=== PATIENT | female | born 2005 ===

== ENCOUNTER 2025-01-29 17:52 | Emergency (ER) | payer OTHER, SELFPAY ==
[2025-01-29 18:12] VITALS: BP 113/74; PULSE 90; RESP 18; TEMP 36.7; O2SAT 99; BMI 45.7
--- NOTE | 2025-01-29 18:15 | ED_ITS ---
HPI - General Adult General Chief complaint: General Medical Stated complaint: covid testing Related Data Allergies Allergy/AdvReac Type Severity Reaction Status Date / Time egg AdvReac Stomach Verified 01/29/25 18:17 Upset tomato AdvReac Itching Verified 01/29/25 18:17 PMFSH Social History Social History Advance Directives: No Advance Directives Information Provided: No Physical Exam ED Vital Signs: Vital Signs - 24 hr 01/29/25 18:12 Temperature 98.1 F Pulse Rate 90 Respiratory Rate 18 Blood Pressure 113/74 Pulse Oximetry 99 Oxygen Delivery Method Room Air BMI result Body Mass Index 45.7 Course Course Course Narrative: This is a Rapid Medical Examination (RME) performed by Josh Juarez PA-C in triage. Full HPI, ROS, assessment and treatment plan per primary provider in the Main ED. Hx: 19 yo F here requesting covid testing. patient reports working at [employer], states someone at work tested positive for covid and they want everyone tested. reports nasal congestion. no other symptoms. Plan: covid swabs Reevaluation(s) Reevaluation #1: Patient left the emergency department before myself or any of the other clinicians could review or explain physical exam findings, test results, need or lack there of for additional testing, treatment options, or a treatment plan. Discharge Plan Discharge Clinical Impression: COVID-19 virus test result unknown Patient Disposition: Left W/O Completing Treatment Discharge Date/Time: 01/29/25 21:06
--- NOTE | 2025-01-29 20:15 | MHC.EDTECH ---
[email or web address]
--- OUTSIDE RECORDS SUMMARY | 2025-01-29 21:07 | XMS_ITS | Clinical Summary ---
Author Organization [facility] Address [address] [place] [address] Care Team Providers Care Business Continuity Director Name Role Phone Pina Ivory MD Primary Care Provider Source Comments PLEASE NOTE, if this patient is a minor, it may be UNLAWFUL to discuss sensitive information that is contained in these records (such as FAMILY PLANNING, MENTAL HEALTH or SUBSTANCE ABUSE) with the minor patient's parent or other person without the patient's specific authorization.[facility] Allergies No known active allergies Medications melatonin 5 mg capsuleIndication s:Sleep disturbance Take 5 mg by mouth nightly at bedtime as needed for sleep. 30 Cap 6 01/17/20 13 Active polyethylene glycol (GLYCOLAX, MIRALAX) 17 gram/dose powder DISSOLVE 17 GRAMS IN WATER AND DRINK ONCE DAILY 527 g 0 01/26/20 14 Active dextroamphetamine -amphetamine (ADDERALL XR) 20 mg 24 hr capsuleIndication s:ADHD (attention deficit hyperactivity disorder) Take 1 capsule by mouth every morning. Do not crush or chew. 30 capsule 0 02/04/20 14 Active omeprazole (PRILOSEC) [address] capsule GIVE LEIRA 1 CAPSULE BY MOUTH EVERY MORNING BEFORE BREAKFAST. DO NOT CRUSH OR CHEW 90 Cap 0 06/23/19 15 Active polyethylene glycol (GLYCOLAX, MIRALAX) 17 gram/dose powder MIX 17 GRAMS INTO 8 OUNCES OF JUICE ONCE A DAY NEEDED FOR CONSTIPATION 527 g 4 01/23/20 15 Active Active Problems Problem Noted Date Diagnosed Date Asthma in pediatric patient ([facility]) 10/08/2013 Overview (10/08/2013): Sees [employer] [facility]. Chronic headaches 03/19/2013 Overview (03/19/2013): Hx of chronic headaches. Old records sent for; followed by Neurologist in [place], [place]; Abnormality on head MRI, per Mother. ADHD (attention deficit hyperactivity disorder) 12/02/2012 Obesity 12/02/2012 Hx: UTI (urinary tract infection) 12/02/2012 Abdominal pain 12/02/2012 Immunizations Immunization Administration Dates Next Due DTAP (DAPTACEL),5 PERTUSSIS ANTIGENS ,06/27/2005,2004,2004,2004 HEP B, PED/ADOL ([id number]/RECOMBIVAX-PEDS) 2004,2004,2004 Hep A, Ped/adol, 2 Dose 10/08/2013,08/28/2012 Hib (PRP-T) 2004,2004,2004 INFLUENZA, SEASONAL, INJECTA BLE, PRESERVATIVE FREE 07/05/2013 IPV (IPOL) 06/27/2005, 5,2004,2003 MMR (MMR II/Priorix) 03/28/2008,03/28/2005 PNEUMOCOCCAL CONJUGATE PCV 7 06/27/2005, 2004,2004,2003 Varicella (Varivax), Live Vaccine 03/01/2008, Social History Tobacco Use Types Packs/Day Years Used Date Smoking Tobacco: Never Smokeless Tobacco: Never Alcohol Use Standard Drinks/Week Comments No 0 (1 standard drink = 0.6 oz pur e alcohol) Comments Unknown Sex and Gender Information Value Date Recorded Sex Assigned at Not on file Legal Sex Female 4:16 PM PDT Gender Identity Not on file Sexual Orientation Not on file Last Filed Vital Signs Vital Sign Reading Time Taken Comments Blood Pressure 112/57 02/03/2014 3:20 PM EDT Pulse 114 02/03/2014 3:20 PM EDT Temperature 36.2 C (97.2 F) 02/03/2014 3:20 PM EDT Respiratory Rate 16 02/03/2014 3:20 PM EDT Oxygen Saturation - - Inhaled Oxygen Concentration - - Weight 74.4 kg (164 lb) 10/08/2013 1:20 PM EDT Height 148.6 cm (4' 10.5 ) 10/08/2013 1:20 PM ED T Body Mass Index 33.69 10/08/2013 1:20 PM EDT Plan of Treatment Not on file Insurance [facility] [facility] [place] [phone] Care Teams Business Continuity Director Relationship Specialty Start Date End Date Pina Ivroy MD [address] [place] [id number] PCP - General Pediatrics 11/14/12
== END 2025-01-29 21:06 | disposition left against medical advice (07) ==
PROVIDERS: Emergency Provider Emergency Medicine
DX: Z03.818 Encounter for observation for suspected exposure to other biological agents ruled out (principal)
CPT/HCPCS: 99281